=== PATIENT | female | born 1970 | race Caucasian/White ===

== ENCOUNTER 2016-10-24 00:13 | Emergency (ER) | payer SELFPAY ==
[~2016-10-24] VITALS: Ht 162.6 cm; Wt 81.6 kg
[2016-10-24 00:13] VITALS: BP 132/83
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
== END 2016-10-24 00:51 | disposition home or self-care (01) ==
LOC: ER 00:13
DX: S40.021A Contusion of right upper arm, initial encounter (principal); G44.311 Acute post-traumatic headache, intractable; M79.602 Pain in left arm; G43.909 Migraine, unspecified, not intractable, without status migrainosus; Y08.89XA Assault by other specified means, initial encounter; Y93.89 Activity, other specified; Y92.89 Other specified places as the place of occurrence of the external cause; Y99.8 Other external cause status
CPT/HCPCS: 99281

== ENCOUNTER 2017-03-26 10:21 | Emergency (ER) | payer SELFPAY ==
[2017-03-26] MEDS: KETOROLAC 60 MG/2 ML INJ. IM ×2 (11:28)
[2017-03-26] MEDS: HYDROcodone/APAP 5/325MG 1 TAB TABLET PO ×2 (12:05)
== END 2017-03-26 13:13 | disposition home or self-care (01) ==
LOC: ER 10:21
DX: R51 Headache (principal); G43.909 Migraine, unspecified, not intractable, without status migrainosus; Z90.49 Acquired absence of other specified parts of digestive tract
CPT/HCPCS: 96372; 99283; J1885

== ENCOUNTER 2017-08-21 13:23 | Emergency (ER) | payer SELFPAY | END 2017-08-21 14:10 | disposition home or self-care (01) | LOC: ER 13:23 | DX: K64.4 Residual hemorrhoidal skin tags (principal); K59.00 Constipation, unspecified; F17.210 Nicotine dependence, cigarettes, uncomplicated; Z71.6 Tobacco abuse counseling; G43.909 Migraine, unspecified, not intractable, without status migrainosus | CPT/HCPCS: 99282 ==

== ENCOUNTER 2017-09-14 14:28 | Emergency (ER) | payer SELFPAY ==
[2017-09-14] MEDS: KETOROLAC 60 MG/2 ML INJ. IM (15:30)
== END 2017-09-14 15:35 | disposition home or self-care (01) ==
LOC: ER 14:28
DX: M62.838 Other muscle spasm (principal); M25.511 Pain in right shoulder; M54.2 Cervicalgia; G43.909 Migraine, unspecified, not intractable, without status migrainosus
CPT/HCPCS: 96372; 99283; J1885

== ENCOUNTER 2017-09-26 09:49 | Emergency (ER) | payer SELFPAY ==
[~2017-09-26] VITALS: Ht 162.6 cm; Wt 81.6 kg
[~2017-09-26 09:49] MED LIST: DIAZ5TAB4 PO; HYDR30CR61 TP; MAGN296S9 PO
[2017-09-26 10:01] VITALS: BP 149/87
[2017-09-26] MEDS ORDERED: PENI500T PO (10:39)
--- NOTE | 2017-09-26 10:39 | PHYS DOC ---
Past Medical History Past Medical History: Cancer, Migraines Additional Past Medical Histor: Hx of drug abuse, colon ca, HEMORRHOID Past Surgical History: Appendectomy, Additional Past Surgical Histo: ganglion cyst, shoulder sugery, uterine ablation, R ROTATOR Alcohol Use: Occasionally Drug Use: None Adult General Chief Complaint Chief Complaint: DENTAL PROBLEM HPI HPI 47-year-old female presents to ER with complaints of right lower dental pain which started yesterday and has been gradually worsening. Patient reports she did go to work and around 3 AM pain increase. Patient states she did take tramadol at that time. Patient denies taking any other apsk-saw-wrxshtw medications for pain today. She reports she has had poor teeth for years and is daily smoker. She denies fever/chills, difficulty swallowing, sore throat/ swelling, or pooling of secretions. She denies facial swelling but does have rt ear pressure. Review of Systems Review of Systems Constitutional: Denies fever or chills [] Eyes: Denies change in visual acuity, redness, or eye pain [] HENT: Denies nasal congestion or sore throat. Reports rt ear pressure. Rt lower posterior dental pain Respiratory: Denies cough or shortness of breath [] Cardiovascular: Denies CP/palpitations GI: Denies abdominal pain, nausea, vomiting, diarrhea [] Musculoskeletal: Denies neck pain. Reports rt jaw pain denies inability to open mouth Integument: Denies rash or skin lesions [] Neurologic: Denies headache, focal weakness or dizziness All other systems were reviewed and found to be within normal limits, except as documented in this note. Current Medications Current Medications Current Medications Medications (Trade) Dose Ordered Sig/[facility] Start Time Stop Time Status Last Admin Dose Admin Acetaminophen/ Hydrocodone Bitart (Lortab 5/325) 1 tab 1X ONCE 09/26/17 10:45 09/26/17 10:46 DC 09/26/17 10:41 1 TAB Ibuprofen (Motrin) 600 mg 1X ONCE 09/26/17 10:45 09/26/17 10:46 DC 09/26/17 10:42 600 MG Allergies Allergies Allergies Coded Allergies Type Severity Reaction Last Updated Verified No Known Drug Allergies 11/17/13 No Physical Exam Physical Exam Constitutional: Well developed, well nourished, no acute distress, non-toxic appearance. [] HENT: Normocephalic, atraumatic, bilat ear exam NL- no erythema/purulent drainage behind tympanic membranes, mucous membranes pink/moist, rt lower posterior 2 molars with gum swelling/mild erythema- no abscess- lower palate soft on palp. with no palp. mass, nose normal. Bilat. mandible with no popping/ clicking when opening/closing mouth- no palp. deformity. No facial swelling Eyes: PERRLA, conjunctiva normal, no discharge. [] Neck: Normal range of motion, no tenderness, supple, no gross adenopathy Cardiovascular:Heart rate regular rhythm, no murmur [] Lungs & Thorax: Bilateral breath sounds clear to auscultation [] Abdomen: Bowel sounds normal, soft, no tenderness Skin: Warm, dry, no erythema, no rash. [] Back: No tenderness, no CVA tenderness. [] Extremities: No tenderness, ROM intact, no edema. [] Neurologic: Alert and oriented X 3, normal motor function, normal sensory function, no focal deficits noted. [] Psychologic: Affect normal, judgement normal, mood normal. [] Current Patient Data Vital Signs Vital Signs Date Time Temp Pulse Resp B/P (MAP) Pulse Ox O2 Delivery O2 Flow Rate FiO2 09/26/17 10:01 97.9 82 20 149/87 (107) 99 Room Air 97.9 EKG EKG [] Radiology/Procedures Radiology/Procedures [] Course & Med Decision Making Course & Med Decision Making Pt on exam had mild erythema posterior lower molars with silver cap on 1 of the molars. Pt had no visible/palp. abscess with full ROM of mandible. Pt was afebrile and speaking in full sentences with no pooling of secretions. Pt has hx of drug abuse in past and has been in recovery for years- discussion had with her regarding narcotics with risk of relapse. Pt verbalized understanding and is requesting 1 dose while in ER with no home Rx. Will provide [place] and dose of ibuprofen. Will give pt Rx for Pen VK and dental clinic info to f/u with with discharge paperwork. Pt has Rx for tramadol at home and will also use tylenol and/or ibuprofen as needed for pain. Education provided on s&s to return to ER for and discharge instructions were discussed. Trish Disclaimer Trish Disclaimer This electronic medical record was generated, in whole or in part, using a voice recognition dictation system. Departure Departure Disposition: 01 HOME, SELF-CARE Condition: STABLE Referrals: DANYELLE SAMANIEGO MD (PCP) Patient Instructions: Dental Caries, Smoking Cessation Additional Instructions: avoid smoking- drink plenty of water- tylenol and/or ibuprofen as needed along with your prescription you have at home for Tramadol as prescribed- warm salt swishes Scripts Penicillin V Potassium (PENICILLIN V POTASSIUM) 500 Mg Tablet 500 MG PO QID, #28 TAB 0 Refills Prov: ANDREW JORDAN APRN 09/26/17 ANDREW JORDAN APRN Sep 26, 2017 10:39
[2017-09-26] MEDS ORDERED: IBUPROFEN 600 MG TABLET. PO ONE (10:45)
[2017-09-26] MEDS ORDERED: HYDROcodone/APAP 5/325MG 1 TAB TABLET PO ONE (10:45)
== END 2017-09-26 10:40 | disposition home or self-care (01) ==
LOC: ER 09:49
DX: K08.89 Other specified disorders of teeth and supporting structures (principal); R68.84 Jaw pain; G43.909 Migraine, unspecified, not intractable, without status migrainosus; Z90.89 Acquired absence of other organs; Z98.890 Other specified postprocedural states
CPT/HCPCS: 99283; 99284

== ENCOUNTER 2018-05-16 14:14 | Emergency (ER) | payer SELFPAY ==
[~2018-05-16] VITALS: Ht 162.6 cm; Wt 72.6 kg
[~2018-05-16 14:14] MED LIST changes: +PENI500T PO
[2018-05-16 14:40] VITALS: BP 142/81
--- NOTE | 2018-05-16 14:57 | PHYS DOC ---
Past Medical History Past Medical History: Cancer, Migraines Additional Past Medical Histor: Hx of drug abuse, colon ca, HEMORRHOID Past Surgical History: Appendectomy, Additional Past Surgical Histo: ganglion cyst, shoulder sugery, uterine ablation, R ROTATOR Alcohol Use: Occasionally Drug Use: None Adult General Chief Complaint Chief Complaint: MULTIPLE COMPLAINTS HPI HPI Patient is a 48 year old female who presents with multiple complaints. She has been getting daily headaches and blurry vision for a month. The BRANHAM is located to the left side associated with ear and throat pain. She rates her current pain a 9/10. She tried taking ibuprofen which did not help. She has a hx of migraines but this has been different as IT IS longer lasting. She usually has photophobia but now she is complaining more of blurry vision. She has to use readers to see things. The pt also complains of cold toes, swollen legs and morning numbness in her hands. These symptoms have also occurred almost daily for a month. She has an associated weakness. The symptoms seem to be worse at the end of her day. She works nights and is on her feet. She has been nauseous. Denies recent illness, fever, chills, CP, SOA, vomiting, abdominal pain, diarrhea. [] Review of Systems Review of Systems Constitutional: Denies fever or chills [] Eyes: Complains of blurry vision. Denies redness, or eye pain [] HENT: Denies nasal congestion. Complains of sore throat and ear pain on the left , BRANHAM [] Respiratory: Denies cough or shortness of breath [] Cardiovascular: Complains of cold toes and swollen legs. [] GI: Denies abdominal pain, vomiting, bloody stools or diarrhea. Complains of nausea [] : Denies dysuria or hematuria [] Musculoskeletal: Denies back pain or joint pain [] Integument: Denies rash or skin lesions [] Neurologic: Complains of headache, numbness in her fingers. [] Endocrine: Denies polyuria or polydipsia [] All other systems were reviewed and found to be within normal limits, except as documented in this note. Current Medications Current Medications Current Medications Medications (Trade) Dose Ordered Sig/[place] Start Time Stop Time Status Last Admin Dose Admin Ketorolac Tromethamine (Toradol 30mg Vial) 30 mg 1X ONCE 05/16/18 15:00 05/16/18 15:01 DC 05/16/18 15:08 30 MG Prochlorperazine Edisylate (Compazine) 10 mg 1X ONCE 05/16/18 15:00 05/16/18 15:01 DC 05/16/18 15:08 10 MG Allergies Allergies Allergies Coded Allergies Type Severity Reaction Last Updated Verified No Known Drug Allergies 11/17/13 No Physical Exam Physical Exam Constitutional: Well developed, well nourished, no acute distress, non-toxic appearance. [] HENT: Normocephalic, atraumatic, bilateral external ears normal, oropharynx moist, no oral exudates, nose normal. [] Eyes: PERRLA, EOMI, conjunctiva normal, no discharge. [] Neck: Normal range of motion, tenderness on the right side, supple, no stridor. [] Cardiovascular:Heart rate regular rhythm, no murmur [] Lungs & Thorax: Bilateral breath sounds clear to auscultation [] Abdomen: Bowel sounds normal, soft, no tenderness, no masses, no pulsatile masses. [] Skin: Warm, dry, no erythema, no rash. [] Back: No tenderness, no CVA tenderness. [] Extremities: No tenderness, no cyanosis, no clubbing, ROM intact, mild edema. [ ] Neurologic: Alert and oriented X 3, normal motor function, normal sensory function, no focal deficits noted. [] Psychologic: Affect normal, judgement normal, mood normal. [] Current Patient Data Vital Signs Vital Signs Date Time Temp Pulse Resp B/P (MAP) Pulse Ox O2 Delivery O2 Flow Rate FiO2 05/16/18 14:40 98.4 98 19 142/81 (101) 98 Room Air 98.4 Lab Values Laboratory Tests Test 05/16/18 15:03 05/16/18 15:56 05/16/18 15:57 White Blood Count 8.3 x10^3/uL (4.0-11.0) Red Blood Count 4.77 x10^6/uL (3.50-5.40) Hemoglobin 14.2 g/dL (12.0-15.5) Hematocrit 42.6 % (36.0-47.0) Mean Corpuscular Volume 89 fL (79-100) Mean Corpuscular Hemoglobin 30 pg (25-35) Mean Corpuscular Hemoglobin Concent 33 g/dL (31-37) Red Cell Distribution Width 13.8 % (11.5-14.5) Platelet Count 252 x10^3/uL (140-400) Neutrophils (%) (Auto) 63 % (31-73) Lymphocytes (%) (Auto) 26 % (24-48) Monocytes (%) (Auto) 8 % (0-9) Eosinophils (%) (Auto) 3 % (0-3) Basophils (%) (Auto) 1 % (0-3) Neutrophils # (Auto) 5.2 x10^3uL (1.8-7.7) Lymphocytes # (Auto) 2.1 x10^3/uL (1.0-4.8) Monocytes # (Auto) 0.7 x10^3/uL (0.0-1.1) Eosinophils # (Auto) 0.2 x10^3/uL (0.0-0.7) Basophils # (Auto) 0.1 x10^3/uL (0.0-0.2) Sodium Level 140 mmol/L (136-145) Potassium Level 4.2 mmol/L (3.5-5.1) Chloride Level 103 mmol/L (98-107) Carbon Dioxide Level 28 mmol/L (21-32) Anion Gap 9 (6-14) Blood Urea Nitrogen 13 mg/dL (7-20) Creatinine 0.7 mg/dL (0.6-1.0) Estimated GFR (Cockcroft-Gault) 90.1 BUN/Creatinine Ratio 19 (6-20) Glucose Level 95 mg/dL (70-99) Calcium Level 9.1 mg/dL (8.5-10.1) Total Bilirubin 0.3 mg/dL (0.2-1.0) Aspartate Amino Transferase (AST) 23 U/L (15-37) Alanine Aminotransferase (ALT) 57 U/L (14-59) Alkaline Phosphatase 82 U/L (46-116) Total Protein 7.2 g/dL (6.4-8.2) Albumin 3.6 g/dL (3.4-5.0) Albumin/Globulin Ratio 1.0 (1.0-1.7) Urine Collection Type Unknown Urine Color Yellow Urine Clarity Clear Urine pH 6.5 Urine Specific [place] 1.020 Urine Protein Negative mg/dL (NEG-TRACE) Urine Glucose (UA) Negative mg/dL (NEG) Urine Ketones (Stick) Negative mg/dL (NEG) Urine Blood Negative (NEG) Urine Nitrite Negative (NEG) Urine Bilirubin Negative (NEG) Urine Urobilinogen Dipstick 1.0 mg/dL (0.2 mg/dL) Urine Leukocyte Esterase Small (NEG) Urine RBC 0 /HPF (0-2) Urine WBC 1-4 /HPF (0-4) Urine Squamous Epithelial Cells Many /LPF Urine Bacteria 0 /HPF (0-FEW) POC Urine HCG, Qualitative Hcg negative (Negative) Laboratory Tests 05/16/18 15:03 Laboratory Tests 05/16/18 15:03 EKG EKG [] Radiology/Procedures Radiology/Procedures [] Course & Med Decision Making Course & Med Decision Making Pertinent Labs and Imaging studies reviewed. (See chart for details) labs look normal pt slept in the er and felt better. no edema or neuro deficit noted on clinical exam. [] Dragon Disclaimer Dragon Disclaimer This electronic medical record was generated, in whole or in part, using a voice recognition dictation system. Departure Departure Impression: Primary Impression: Headache Disposition: HOME, SELF-CARE Condition: STABLE Referrals: DANYELLE SAMANIEGO MD (PCP) LUCIANA SANTO MD May 16, 2018 14:57
[2018-05-16] MEDS ORDERED: KETOROLAC 30 MG/ML VIAL. IM ONE (15:00)
[2018-05-16] MEDS ORDERED: PROCHLORPERAZINE 10 MG/2 ML VIAL. IM ONE (15:00)
[2018-05-16 15:13] LABS: BASO # 0.1 x10^3/uL (0.0-0.2); BASO % 1 % (0-3); EOS # 0.2 x10^3/uL (0.0-0.7); EOS % 3 % (0-3); HEMATOCRIT 42.6 % (36.0-47.0); HEMOGLOBIN 14.2 g/dL (12.0-15.5); LYMPH # 2.1 x10^3/uL (1.0-4.8); LYMPH % 26 % (24-48); MEAN CORPUSCULAR HEMOGLOBIN 30 pg (25-35); MEAN CORPUSCULAR HGB CONC 33 g/dL (31-37); MEAN CORPUSCULAR VOLUME 89 fL (79-100); MONO # 0.7 x10^3/uL (0.0-1.1); MONO % 8 % (0-9); NEUT # 5.2 x10^3uL (1.8-7.7); NEUT % 63 % (31-73); PLATELET COUNT 252 x10^3/uL (140-400); RED BLOOD COUNT 4.77 x10^6/uL (3.50-5.40); RED CELL DISTRIBUTION WIDTH 13.8 % (11.5-14.5); WHITE BLOOD COUNT 8.3 x10^3/uL (4.0-11.0)
[2018-05-16 15:26] LABS: CALCIUM 9.1 mg/dL (8.5-10.1); CREATININE 0.7 mg/dL (0.6-1.0); GFR 90.1; POTASSIUM 4.2 mmol/L (3.5-5.1)
[2018-05-16 15:32] LABS: ALBUMIN 3.6 g/dL (3.4-5.0); TOTAL BILIRUBIN 0.3 mg/dL (0.2-1.0); TOTAL PROTEIN 7.2 g/dL (6.4-8.2)
[2018-05-16 16:05] LABS: BILIRUBIN,URINE NEGATIVE (NEG); CLARITY,URINE CLEAR; COLOR,URINE YELLOW; NITRITE,URINE NEGATIVE (NEG); PH,URINE 6.5; PROTEIN,URINE NEGATIVE (NEG-TRACE)
[2018-05-16 16:16] LABS: BACTERIA,URINE 0 /HPF (0-FEW); RBC,URINE 0 /HPF (0-2); SQUAMOUS EPITHELIAL CELL,UR MANY /LPF
== END 2018-05-16 16:31 | disposition home or self-care (01) ==
LOC: ER 14:14
DX: G43.909 Migraine, unspecified, not intractable, without status migrainosus (principal); H53.8 Other visual disturbances; R20.0 Anesthesia of skin; R11.0 Nausea; Z90.89 Acquired absence of other organs; Z98.890 Other specified postprocedural states
CPT/HCPCS: 36415; 80053; 81001; 81025; 85025; 87086; 96372; 99283; J0780; J1885

== ENCOUNTER 2018-08-03 20:51 | Emergency (ER) | payer SELFPAY ==
[~2018-08-03] VITALS: Ht 162.6 cm; Wt 86.2 kg
[2018-08-03 21:20] VITALS: BP 142/81
[2018-08-03] MEDS ORDERED: CEPH500C PO (21:48)
[2018-08-03 22:20] LABS: CREATININE ISTAT 0.9 mg/dL (0.5-1.4); HEMOGLOBIN ISTAT 13.6 g/dL (12-15); ION CA ISTAT 1.2 mmol/L (1.13-1.32); POTASSIUM ISTAT 3.6 mmol/L (3.5-5.0)
--- NOTE | 2018-08-03 22:27 | PHYS DOC ---
Past Medical History Past Medical History: Cancer, Migraines Additional Past Medical Histor: Hx of drug abuse, colon ca, HEMORRHOID Past Surgical History: Appendectomy, Additional Past Surgical Histo: ganglion cyst, shoulder sugery, uterine ablation, R ROTATOR Alcohol Use: Occasionally Drug Use: None Adult General Chief Complaint Chief Complaint: MULTIPLE COMPLAINTS HPI HPI Patient is a 48 year old female presents with an enlarging mole on her left face she said something came out of it was bleeding all day she is really worried that she might have skin cancer. Pain is moderate left cheek nonradiating feel swollen has not yet tried anything for relief. In addition she is worried about weight gain for the last several days she feels like everything is swollen. Of note we did an i-STAT chemistry panel sodium 140 potassium 3.6 chloride 101 glucose 90 9B UN of a creatinine of 0.9 hemoglobin of 13.6. Review of Systems Review of Systems Constitutional: Denies fever or chills [] Eyes: Denies change in visual acuity, redness, or eye pain [] HENT: Denies nasal congestion or sore throat [] Respiratory: Denies cough or shortness of breath [] Cardiovascular: No additional information not addressed in HPI [] Musculoskeletal: Denies back pain or joint pain [] All other systems were reviewed and found to be within normal limits, except as documented in this note. Allergies Allergies Allergies Coded Allergies Type Severity Reaction Last Updated Verified No Known Drug Allergies 11/17/13 No Physical Exam Physical Exam Constitutional: Well developed, well nourished, no acute distress, non-toxic appearance. [] HENT: Normocephalic, atraumatic, bilateral external ears normal, oropharynx moist, no oral exudates, nose normal. [] Eyes: PERRLA, EOMI, conjunctiva normal, no discharge. [] Neck: Normal range of motion, no tenderness, supple, no stridor. [] Cardiovascular:Heart rate regular rhythm, no murmur [] Lungs & Thorax: Bilateral breath sounds clear to auscultation [] Abdomen: Bowel sounds normal, soft, no tenderness, no masses, no pulsatile masses. [] Skin: There is a molar left face there is mild erythema surrounding it is mildly to moderately tender to palpation no obvious fluctuance. It is approximately 1 cm in size Back: No tenderness, no CVA tenderness. [] Extremities: No tenderness, no cyanosis, no clubbing, ROM intact, trace edema bilateral lower extremities Neurologic: Alert and oriented X 3, normal motor function, normal sensory function, no focal deficits noted. [] Psychologic: Affect normal, judgement normal, mood normal. [] Current Patient Data Vital Signs Vital Signs Date Time Temp Pulse Resp B/P (MAP) Pulse Ox O2 Delivery O2 Flow Rate FiO2 08/03/18 21:20 98.6 100 18 142/81 (101) 98 Room Air 98.6 Lab Values Laboratory Tests Test 08/03/18 21:55 POC Hemoglobin 13.6 g/dL (12-15) POC Hematocrit 40 % (36-40) POC Sodium 140 mmol/L (135-145) POC Potassium 3.6 mmol/L (3.5-5.0) POC Chloride 101 mmol/L (98-110) POC Total CO2 26 mmol/L (23-32) Anion Gap 18 mmol/L (6-14) H POC Blood Urea Nitrogen 8 mg/dL (8-26) POC Creatinine 0.9 mg/dL (0.5-1.4) Glucose Level 99 mg/dL (70-99) POC Ionized Calcium (Julia) 1.20 mmol/L (1.13-1.32) Laboratory Tests 08/03/18 21:55 EKG EKG [] Radiology/Procedures Radiology/Procedures [] Course & Med Decision Making Course & Med Decision Making Pertinent Labs and Imaging studies reviewed. (See chart for details) []Doses well-appearing 48-year-old female who presents with a primary complaint of an enlarging mold her left face. There may be mild cellulitis Keflex was given patient was advised on the importance of dermatology follow-up within 4 weeks for possible biopsy if it does not go down. In addition we did a Creatinine for reported increased weight gain that was normal patient really has minimal edema if any reassurance was provided vitals are normal lungs are clear. Dragon Disclaimer Dragon Disclaimer This electronic medical record was generated, in whole or in part, using a voice recognition dictation system. Departure Departure Impression: Primary Impression: Skin mole Disposition: HOME, SELF-CARE Condition: STABLE Patient Instructions: Mole-Brief Additional Instructions: get follow up dermatology in 4 weeks for biopsy if it doesnt go down. Scripts Cephalexin (CEPHALEXIN) 500 Mg Capsule 1 CAP PO QID, #40 CAP Prov: LENAGHAN,LUCIANA MD 08/03/18 LUCIANA SANTO MD Aug 03, 2018 22:27
== END 2018-08-03 22:30 | disposition home or self-care (01) ==
LOC: ER 20:51
DX: D22.39 Melanocytic nevi of other parts of face (principal); G43.909 Migraine, unspecified, not intractable, without status migrainosus; Z90.89 Acquired absence of other organs; Z98.890 Other specified postprocedural states
CPT/HCPCS: 36415; 80047; 85014; 85018; 99283

== ENCOUNTER 2019-06-25 02:13 | Emergency (ER) | payer SELFPAY ==
[~2019-06-25] VITALS: Ht 162.6 cm; Wt 81.8 kg
[~2019-06-25 02:13] MED LIST changes: +CEPH500C PO; +MAGN296S68 PO; -MAGN296S9 PO
[2019-06-25 03:18] LABS: BILIRUBIN,URINE NEGATIVE (NEG); CLARITY,URINE CLEAR; COLOR,URINE YELLOW; NITRITE,URINE NEGATIVE (NEG); PH,URINE 5.5 (<5.0-8.0); PROTEIN,URINE NEGATIVE (NEG-TRACE); UROBILINOGEN,URINE 0.2 mg/dL (0.2 mg/dL)
[2019-06-25 03:19] LABS: BACTERIA,URINE FEW /HPF (0-FEW); RBC,URINE OCC /HPF (0-2); SQUAMOUS EPITHELIAL CELL,UR MOD /LPF
--- NOTE | 2019-06-25 03:46 | PHYS DOC ---
Past Medical History Past Medical History: No Pertinent History Additional Past Medical Histor: Hx of drug abuse, colon ca, HEMORRHOID Past Surgical History: Appendectomy, Additional Past Surgical Histo: tubal, c section, previous meth use Smoking Status: Current Every Day Smoker Additional Information: 02/14 ppd Alcohol Use: Rarely Drug Use: None Social History Narrative: recovering meth use General Adult EDM: Chief Complaint: VAGINAL PROBLEM HPI: HPI: Patient is a 49 year old female who presents with complaint of vaginal swelling and pain for the last 3 days. Patient states that it haney when she urinates. She denies any fever. Patient states that she has been taking Monistat without any relief. Patient does believe it to be a yeast infection. Patient does indicate that she is not sexually active so she knows that it is not an STD. [] Review of Systems: Review of Systems: Constitutional: Denies fever or chills. [] Respiratory: Denies cough or shortness of breath. [] Cardiovascular: Denies chest pain or edema. [] GI: Denies abdominal pain, nausea, vomiting, bloody stools or diarrhea. [] : Complains of burning with urination as well as vaginal pain. [] Neurologic: Denies headache, focal weakness or sensory changes. [] Heart Score: Risk Factors: Risk Factors: DM, Current or recent (<one month) smoker, HTN, HLP, family history of CAD, obesity. Risk Scores: Score 0 - 3: 2.5% MACE over next 6 weeks - Discharge Home Score 4 - 6: 20.3% MACE over next 6 weeks - Admit for Clinical Observation Score 7 - 10: 72.7% MACE over next 6 weeks - Early Invasive Strategies Current Medications: Current Medications Medications (Trade) Dose Ordered Sig/[facility] Start Time Stop Time Status Last Admin Dose Admin Fluconazole (Diflucan) 150 mg 1X ONCE 06/25/19 04:00 06/25/19 04:01 06/25/19 03:40 150 MG Allergies: Allergies: Allergies Coded Allergies Type Severity Reaction Last Updated Verified No Known Drug Allergies 11/17/13 No Physical Exam: PE: Constitutional: Well developed, well nourished, no acute distress, non-toxic appearance. [] Cardiovascular: Regular rate and rhythm [] Lungs & Thorax: Bilateral breath sounds clear to auscultation [] Abdomen: Bowel sounds normal, soft, no tenderness. [] Skin: Warm, dry, no erythema, no rash. [] Current Patient Data: Labs: Laboratory Tests Test 06/25/19 02:25 Urine Collection Type Unknown Urine Color Yellow Urine Clarity Clear Urine pH 5.5 (<5.0-8.0) Urine Specific Harvey >=1.030 (1.000-1.030) Urine Protein Negative mg/dL (NEG-TRACE) Urine Glucose (UA) Negative mg/dL (NEG) Urine Ketones (Stick) Negative mg/dL (NEG) Urine Blood Small (NEG) Urine Nitrite Negative (NEG) Urine Bilirubin Negative (NEG) Urine Urobilinogen Dipstick 0.2 mg/dL (0.2 mg/dL) Urine Leukocyte Esterase Moderate (NEG) Urine RBC Occ /HPF (0-2) Urine WBC 5-10 /HPF (0-4) Urine Squamous Epithelial Cells Mod /LPF Urine Bacteria Few /HPF (0-FEW) Urine Mucus Mod /LPF Vital Signs: Vital Signs Date Time Temp Pulse Resp B/P (MAP) Pulse Ox O2 Delivery O2 Flow Rate FiO2 06/25/19 02:21 98.2 105 18 144/74 (97) 97 Room Air 98.2 EKG: EKG: [] Radiology/Procedures: Radiology/Procedures: [] Course & Med Decision Making: Course & Med Decision Making Pertinent Labs and Imaging studies reviewed. (See chart for details) [] Dragon Disclaimer: Dragon Disclaimer: This electronic medical record was generated, in whole or in part, using a voice recognition dictation system. Departure Departure Impression: Primary Impression: Bacterial vaginosis Disposition: 01 HOME, SELF-CARE Condition: STABLE Referrals: DANYELLE SAMANIEGO MD (PCP) Patient Instructions: Bacterial Vaginosis Scripts Clotrimazole (CLOTRIMAZOLE) 15 Gm Cream..g. 1 JONATHON VAG BID, #15 GM Prov: JAS WILLIAMSON Jr. DO 06/25/19 Metronidazole (FLAGYL) 500 Mg Tablet 1 TAB PO BID, #14 TAB Prov: JAS WILLIAMSON Jr. DO 06/25/19 JAS WILLIAMSON Jr. DO June 25, 2019 03:45
[2019-06-25] MEDS ORDERED: FLUCONAZOLE 100 MG TABLET. PO ONE (04:00)
[2019-06-25 04:30] VITALS: BP 160/77
[2019-06-25] MEDS ORDERED: CLOT15CR4 VAG (04:39)
[2019-06-25] MEDS ORDERED: METR500T PO (04:39)
== END 2019-06-25 04:47 | disposition home or self-care (01) ==
LOC: ER 02:13
DX: N76.0 Acute vaginitis (principal); R30.0 Dysuria; R60.0 Localized edema; R10.2 Pelvic and perineal pain; F17.200 Nicotine dependence, unspecified, uncomplicated; F19.10 Other psychoactive substance abuse, uncomplicated; F15.10 Other stimulant abuse, uncomplicated; Z98.51 Tubal ligation status; Z90.89 Acquired absence of other organs; Z98.890 Other specified postprocedural states; Z85.9 Personal history of malignant neoplasm, unspecified
CPT/HCPCS: 81001; 87086; 99284; Q0111

== ENCOUNTER 2020-07-26 19:28 | Emergency (ER) | payer SELFPAY ==
[~2020-07-26] VITALS: Ht 162.6 cm; Wt 82.0 kg
[~2020-07-26 19:28] MED LIST changes: +CLOT15CR23 VAG; +METR500T PO
[2020-07-26] MEDS ORDERED: KETOROLAC 30 MG/ML VIAL. IVP ONE (20:15)
[2020-07-26] MEDS ORDERED: PROCHLORPERAZINE 10 MG/2 ML VIAL. IV ONE (20:15)
[2020-07-26] MEDS ORDERED: methylPREDNISolone SOD SUCC PF 125 MG/2 ML VIAL. IV ONE (20:15)
[2020-07-26] MEDS ORDERED: IV NORMAL SALINE 1000ML BAG 1,000 ML IV ONE (20:15)
[2020-07-26 20:27] LABS: BASO # 0.1 x10^3/uL (0.0-0.2); BASO % 1 % (0-3); EOS # 0.4 x10^3/uL (0.0-0.7); EOS % 6 % (0-3); HEMATOCRIT 38.5 % (36.0-47.0); HEMOGLOBIN 12.9 g/dL (12.0-15.5); LYMPH # 2.2 x10^3/uL (1.0-4.8); LYMPH % 32 % (24-48); MEAN CORPUSCULAR HEMOGLOBIN 29 pg (25-35); MEAN CORPUSCULAR HGB CONC 33 g/dL (31-37); MEAN CORPUSCULAR VOLUME 87 fL (79-100); MONO # 0.6 x10^3/uL (0.0-1.1); MONO % 8 % (0-9); NEUT # 3.6 x10^3/uL (1.8-7.7); NEUT % 53 % (31-73); PLATELET COUNT 218 x10^3/uL (140-400); RED BLOOD COUNT 4.45 x10^6/uL (3.50-5.40); RED CELL DISTRIBUTION WIDTH 13.9 % (11.5-14.5); WHITE BLOOD COUNT 6.9 x10^3/uL (4.0-11.0)
[2020-07-26 20:37] LABS: CALCIUM 8.4 mg/dL (8.5-10.1); CREATININE 1.1 mg/dL (0.6-1.0); POTASSIUM 3.5 mmol/L (3.5-5.1)
[2020-07-26 20:42] LABS: ALBUMIN 3.1 g/dL (3.4-5.0); ALBUMIN/GLOBULIN RATIO 1.1 (1.0-1.7); TOTAL BILIRUBIN 0.3 mg/dL (0.2-1.0)
[2020-07-26] MEDS ORDERED: PROM12.58 PO ×2 (22:02→22:55)
[2020-07-26] MEDS ORDERED: SUMA50TA3 PO ×2 (22:02→22:55)
--- NOTE | 2020-07-26 22:02 | PHYS DOC ---
Past Medical History Past Medical History: Other Additional Past Medical Histor: Hx of drug abuse, colon ca, HEMORRHOID, ORAL CA (LYUDMILA ELDER BEHAVIORAL THERAPIST) Past Surgical History: Appendectomy, Additional Past Surgical Histo: tubal, c section, previous meth use (LYUDMILA ELDER BEHAVIORAL THERAPIST) Smoking Status: Current Every Day Smoker Alcohol Use: Rarely Drug Use: None (LYUDMILA ELDER BEHAVIORAL THERAPIST) General Adult EDM: Chief Complaint: MULTIPLE COMPLAINTS HPI: HPI: Patient is a 50 year old female who presents to the ED today with multiple complaints. Patient is complaining of 8 out of 10 generalized moderate headache with nausea, symptoms began yesterday. Patient states she used to be on Imitrex but does not have it anymore. Tried [id number] remedies with no relief. Also complaining of subjective fever and nasal congestion since this morning. Denies this being the worst headache in her life, states her headache is consistent with her migraine headaches. (LYUDMILA ELDER BEHAVIORAL THERAPIST) Review of Systems: Review of Systems: Constitutional: Denies fever or chills. [] Eyes: Denies change in visual acuity. [] HENT: Reports nasal congestion denies sore throat. [] Respiratory: Denies cough or shortness of breath. [] Cardiovascular: Denies chest pain or edema. [] GI: Denies abdominal pain, nausea, vomiting, bloody stools or diarrhea. [] : Denies dysuria. [] Musculoskeletal: Denies back pain or joint pain. [] Integument: Denies rash. [] Neurologic: Reports headache, denies focal weakness or sensory changes. [] Psychiatric: Denies depression or anxiety. [] (LYUDMILA ELDER BEHAVIORAL THERAPIST) Heart Score: C/O Chest Pain: N/A Risk Factors: Risk Factors: DM, Current or recent (<one month) smoker, HTN, HLP, family history of CAD, obesity. Risk Scores: Score 0 - 3: 2.5% MACE over next 6 weeks - Discharge Home Score 4 - 6: 20.3% MACE over next 6 weeks - Admit for Clinical Observation Score 7 - 10: 72.7% MACE over next 6 weeks - Early Invasive Strategies (LYUDMILA ELDER BEHAVIORAL THERAPIST) Current Medications: Current Medications Medications (Trade) Dose Ordered Sig/[facility] Start Time Stop Time Status Last Admin Dose Admin Ketorolac Tromethamine (Toradol 30mg Vial) 30 mg 1X ONCE 07/26/20 20:15 07/26/20 20:16 DC 07/26/20 20:17 30 MG Methylprednisolone Sodium Succinate (SOLU-Medrol 125MG VIAL) 125 mg 1X ONCE 07/26/20 20:15 07/26/20 20:16 DC 07/26/20 20:17 125 MG Prochlorperazine Edisylate (Compazine) 10 mg 1X ONCE 07/26/20 20:15 07/26/20 20:16 DC 07/26/20 20:17 10 MG Sodium Chloride 1,000 ml @ 1,000 mls/hr 1X ONCE 07/26/20 20:15 07/26/20 21:14 DC 07/26/20 20:16 1,000 MLS/HR (LYUDMILA ELDER BEHAVIORAL THERAPIST) Allergies: Allergies: Allergies Coded Allergies Type Severity Reaction Last Updated Verified No Known Drug Allergies 11/17/13 No (LYUDMILA ELDER BEHAVIORAL THERAPIST) Physical Exam: PE: Constitutional: Well developed, well nourished, no acute distress, non-toxic appearance. [] HENT: Normocephalic, atraumatic, bilateral external ears normal, oropharynx moist, no oral exudates, nose normal. [] Eyes: PERRLA, EOMI, conjunctiva normal, no discharge. [] Neck: Normal range of motion, no tenderness, supple, no stridor. [] Cardiovascular:Heart rate regular rhythm, no murmur [] Lungs & Thorax: Bilateral breath sounds clear to auscultation [] Abdomen: Bowel sounds normal, soft, no tenderness, no masses, no pulsatile masses. [] Skin: Warm, dry, no erythema, no rash. [] Back: No tenderness, no CVA tenderness. [] Extremities: No tenderness, no cyanosis, no clubbing, ROM intact, no edema. [] Neurologic: Alert and oriented X 3, normal motor function, normal sensory function, no focal deficits noted. Cranial nerves II through XII intact Psychologic: Affect normal, judgement normal, mood normal. [] (LYUDMILA ELDER BEHAVIORAL THERAPIST) Current Patient Data: Labs: Laboratory Tests Test 07/26/20 20:15 White Blood Count 6.9 x10^3/uL (4.0-11.0) Red Blood Count 4.45 x10^6/uL (3.50-5.40) Hemoglobin 12.9 g/dL (12.0-15.5) Hematocrit 38.5 % (36.0-47.0) Mean Corpuscular Volume 87 fL (79-100) Mean Corpuscular Hemoglobin 29 pg (25-35) Mean Corpuscular Hemoglobin Concent 33 g/dL (31-37) Red Cell Distribution Width 13.9 % (11.5-14.5) Platelet Count 218 x10^3/uL (140-400) Neutrophils (%) (Auto) 53 % (31-73) Lymphocytes (%) (Auto) 32 % (24-48) Monocytes (%) (Auto) 8 % (0-9) Eosinophils (%) (Auto) 6 % (0-3) H Basophils (%) (Auto) 1 % (0-3) Neutrophils # (Auto) 3.6 x10^3/uL (1.8-7.7) Lymphocytes # (Auto) 2.2 x10^3/uL (1.0-4.8) Monocytes # (Auto) 0.6 x10^3/uL (0.0-1.1) Eosinophils # (Auto) 0.4 x10^3/uL (0.0-0.7) Basophils # (Auto) 0.1 x10^3/uL (0.0-0.2) Sodium Level 143 mmol/L (136-145) Potassium Level 3.5 mmol/L (3.5-5.1) Chloride Level 105 mmol/L (98-107) Carbon Dioxide Level 29 mmol/L (21-32) Anion Gap 9 (6-14) Blood Urea Nitrogen 9 mg/dL (7-20) Creatinine 1.1 mg/dL (0.6-1.0) H Estimated GFR (Cockcroft-Gault) 53.0 BUN/Creatinine Ratio 8 (6-20) Glucose Level 163 mg/dL (70-99) H Calcium Level 8.4 mg/dL (8.5-10.1) L Total Bilirubin 0.3 mg/dL (0.2-1.0) Aspartate Amino Transferase (AST) 13 U/L (15-37) L Alanine Aminotransferase (ALT) 22 U/L (14-59) Alkaline Phosphatase 81 U/L (46-116) Total Protein 6.0 g/dL (6.4-8.2) L Albumin 3.1 g/dL (3.4-5.0) L Albumin/Globulin Ratio 1.1 (1.0-1.7) Ethyl Alcohol Level < 10 mg/dL (0-10) Laboratory Tests 07/26/20 20:15 Laboratory Tests 07/26/20 20:15 Vital Signs: Vital Signs Date Time Temp Pulse Resp B/P (MAP) Pulse Ox O2 Delivery O2 Flow Rate FiO2 07/26/20 20:18 98 18 130/78 (95) 96 Room Air 07/26/20 19:30 98.1 98.1 (LYUDMILA ELDER BEHAVIORAL THERAPIST) EKG: EKG: [] (LYUDMILA ELDER APRN) Radiology/Procedures: Radiology/Procedures: [] (LYUDMILA ELDER APRN) Course & Med Decision Making: Course & Med Decision Making Pertinent Labs and Imaging studies reviewed. (See chart for details) This is a 50-year-old female patient presenting to the ED today with a migraine headache, nasal congestion and nausea. Symptoms since yesterday. Patient's labs are negative for any acute findings. Pain is well managed. Discharged home. Prescription for Imitrex provided (LYUDMILA ELDER BEHAVIORAL THERAPIST) Course & Med Decision Making The chart was reviewed. Care and treatment plan made by midlevel provider. I was available for consult. (MELITON LANZA DO) Trish Disclaimer: Trish Disclaimer: This electronic medical record was generated, in whole or in part, using a voice recognition dictation system. (LYUDMILA ELDER BEHAVIORAL THERAPIST) Departure Departure Impression: Primary Impression: Migraine headache Qualified Codes: G43.909 - Migraine, unspecified, not intractable, without status migrainosus Additional Impressions: Upper respiratory infection Qualified Codes: J06.9 - Acute upper respiratory infection, unspecified Nausea Disposition: HOME / SELF CARE / HOMELESS Condition: STABLE Referrals: DANYELLE SAMANIEGO MD (PCP) Follow-up in a week Patient Instructions: Migraine Headache, Nausea and Vomiting, Hhmi-ep-[id number], Upper Respiratory Infection, Adult, Pylx-kj-Eond Additional Instructions: You were evaluated in the emergency room for migraine headache with nausea as well as upper respiratory infection symptoms. Take the prescribed medications as ordered. Follow-up with your doctor in 1 week Scripts Sumatriptan Succinate (IMITREX) 50 Mg Tablet 1 TAB PO UD, #9 TAB 1 Refill Take one tablet at the onset of migraine headache. Repeat in 2 hours if pain persist. Do not take more than 2 tablets in 24 hours Prov: LYUDMILA ELDER APRN 07/26/20 Promethazine Hcl (PROMETHAZINE HCL) 25 Mg Tablet 1 TAB PO PRN Q6HRS, #20 TAB Prov: LYUDMILA ELDER APRN 07/26/20 Promethazine Hcl (PROMETHAZINE HCL) 12.5 Mg Tablet 1 TAB PO Q6-8HRS for motion sickness for 5 Days, #20 TAB 0 Refills Prov: LYUDMILA ELDER APRN 07/26/20 Sumatriptan Succinate (IMITREX) 50 Mg Tablet 1 TAB PO UD, #9 TAB 1 Refill Take 1 tablet at the onset of a headache and repeat in 2 hours if symptoms persist, do not take more than 2 tablets in 24 hours Prov: LYUDMILA ELDER APRN 07/26/20 LYUDMILA ELDER APRN Jul 26, 2020 22:02 MELITON LANZA DO Jul 27, 2020 20:22
[2020-07-26 22:09] VITALS: BP 117/82
[2020-07-26] MEDS ORDERED: PROM25TA10 PO (22:55)
== END 2020-07-26 22:50 | disposition home or self-care (01) ==
LOC: ER 19:28
DX: G43.909 Migraine, unspecified, not intractable, without status migrainosus (principal); J06.9 Acute upper respiratory infection, unspecified; F17.200 Nicotine dependence, unspecified, uncomplicated; Z90.89 Acquired absence of other organs
CPT/HCPCS: 36415; 80053; 85025; 96361; 96374; 96375; 99285; G0480; J0780; J1885; J2930; J7030

== ENCOUNTER 2020-08-07 14:08 | Emergency (ER) | payer SELFPAY ==
[~2020-08-07] VITALS: Ht 162.6 cm; Wt 72.7 kg
[~2020-08-07 14:08] MED LIST changes: +PROM12.58 PO; +PROM25TA10 PO; +SUMA50TA3 PO
[2020-08-07 15:08] LABS: BASO # 0.1 x10^3/uL (0.0-0.2); BASO % 1 % (0-3); EOS # 0.2 x10^3/uL (0.0-0.7); EOS % 2 % (0-3); HEMATOCRIT 42.8 % (36.0-47.0); HEMOGLOBIN 14.8 g/dL (12.0-15.5); LYMPH # 2.4 x10^3/uL (1.0-4.8); LYMPH % 25 % (24-48); MEAN CORPUSCULAR HEMOGLOBIN 30 pg (25-35); MEAN CORPUSCULAR HGB CONC 35 g/dL (31-37); MEAN CORPUSCULAR VOLUME 87 fL (79-100); MONO % 10 % (0-9); NEUT # 6.2 x10^3/uL (1.8-7.7); NEUT % 62 % (31-73); PLATELET COUNT 281 x10^3/uL (140-400); RED BLOOD COUNT 4.94 x10^6/uL (3.50-5.40); RED CELL DISTRIBUTION WIDTH 14.1 % (11.5-14.5)
[2020-08-07 15:09] LABS: BILIRUBIN,URINE SMALL (NEG); CLARITY,URINE CLEAR; COLOR,URINE AMBER; NITRITE,URINE NEGATIVE (NEG); PROTEIN,URINE NEGATIVE (NEG-TRACE)
[2020-08-07 15:15] LABS: CALCIUM 8.8 mg/dL (8.5-10.1); GFR 59.2
[2020-08-07 15:21] LABS: ALBUMIN 3.4 g/dL (3.4-5.0); TOTAL BILIRUBIN 0.2 mg/dL (0.2-1.0); TOTAL PROTEIN 6.7 g/dL (6.4-8.2)
[2020-08-07 15:24] LABS: BACTERIA,URINE MODERATE /HPF (0-FEW); RBC,URINE OCC /HPF (0-2)
--- NOTE | 2020-08-07 15:28 | PHYS DOC ---
Past Medical History Past Medical History: Cancer, Migraines, Other Additional Past Medical Histor: Hx of drug abuse/METH USE/colon ca/ HEMORRHO ID,ORAL CA Past Surgical History: Appendectomy, , Tubal ligation Additional Past Surgical Histo: tubal, c section, previous meth use Smoking Status: Current Every Day Smoker Additional Information: 0.75 PPD Alcohol Use: Rarely Drug Use: None General Adult EDM: Chief Complaint: DIZZY/LIGHT HEADED HPI: HPI: 50-year-old female presenting to the emergency department today with dizziness for 2 weeks. She reports the dizziness is worse when she moves and helps when she lays down and close her eyes. It is not present all the time. She denies double vision slurred speech or focal neurologic deficits. Location generalized. Duration constant. She was seen in another hospital they gave her meclizine which causes her to be mildly nauseous. Review of systems negative for chest pain shortness of breath abdominal pain vomiting diaphoresis fevers or chills. All other review of systems negative. ED course: 50-year-old female presenting the emergency department today with generalized dizziness. Exam is suggestive of a peripheral vertigo. Head CT and blood work unremarkable. Urine analysis is not suggestive of an infection. Small leuk esterase. Negative nitrites. Contaminated specimen. We will provide the patient with Zofran and refer her outpatient to a neurologist for vertigo. Follow-up within 1 to 2 days with PCP follow-up within 3 to 5 days of neurology. Return for worsening symptoms. Heart Score: C/O Chest Pain: No Risk Factors: Risk Factors: DM, Current or recent (<one month) smoker, HTN, HLP, family history of CAD, obesity. Risk Scores: Score 0 - 3: 2.5% MACE over next 6 weeks - Discharge Home Score 4 - 6: 20.3% MACE over next 6 weeks - Admit for Clinical Observation Score 7 - 10: 72.7% MACE over next 6 weeks - Early Invasive Strategies Allergies: Allergies: Allergies Coded Allergies Type Severity Reaction Last Updated Verified No Known Drug Allergies 11/17/13 No Physical Exam: PE: Constitutional: Well developed, well nourished, no acute distress, non-toxic appearance. [] HENT: Normocephalic, atraumatic, bilateral external ears normal, oropharynx moist, no oral exudates, nose normal. [] Eyes: PERRLA, EOMI, conjunctiva normal, no discharge. [] Neck: Normal range of motion, no tenderness, supple, no stridor. [] Cardiovascular:Heart rate regular rhythm, no murmur [] Lungs & Thorax: Bilateral breath sounds clear to auscultation [] Abdomen: Bowel sounds normal, soft, no tenderness, no masses, no pulsatile masses. [] Skin: Warm, dry, no erythema, no rash. [] Back: No tenderness, no CVA tenderness. [] Extremities: No tenderness, no cyanosis, no clubbing, ROM intact, no edema. [] Neurologic: Mental status: Awake oriented and alert x3 Cranial nerves: Extraocular movements intact, eyebrows zoila bilaterally, smile symmetric, uvula elevation nl, shoulder shrug intact bilaterally, tongue protrusion normal. Head impulse suggestive of peripheral vertigo with nystagmus provoked. Lateral nystagmus present. No vertical nystagmus. No skew. Clear speech. Normal [id number]-[id number]. Sensation: equal and normal in all extremities Strength: 5/5 in upper and lower extremities bilaterally Psychologic: Affect normal, judgement normal, mood normal. [] Current Patient Data: Labs: Laboratory Tests Test 08/07/20 14:57 White Blood Count 10.0 x10^3/uL (4.0-11.0) Red Blood Count 4.94 x10^6/uL (3.50-5.40) Hemoglobin 14.8 g/dL (12.0-15.5) Hematocrit 42.8 % (36.0-47.0) Mean Corpuscular Volume 87 fL (79-100) Mean Corpuscular Hemoglobin 30 pg (25-35) Mean Corpuscular Hemoglobin Concent 35 g/dL (31-37) Red Cell Distribution Width 14.1 % (11.5-14.5) Platelet Count 281 x10^3/uL (140-400) Neutrophils (%) (Auto) 62 % (31-73) Lymphocytes (%) (Auto) 25 % (24-48) Monocytes (%) (Auto) 10 % (0-9) H Eosinophils (%) (Auto) 2 % (0-3) Basophils (%) (Auto) 1 % (0-3) Neutrophils # (Auto) 6.2 x10^3/uL (1.8-7.7) Lymphocytes # (Auto) 2.4 x10^3/uL (1.0-4.8) Monocytes # (Auto) 1.0 x10^3/uL (0.0-1.1) Eosinophils # (Auto) 0.2 x10^3/uL (0.0-0.7) Basophils # (Auto) 0.1 x10^3/uL (0.0-0.2) Laboratory Tests 08/07/20 14:57 Vital Signs: Vital Signs Date Time Temp Pulse Resp B/P (MAP) Pulse Ox O2 Delivery O2 Flow Rate FiO2 08/07/20 14:27 98.1 108 17 147/77 (100) 99 Room Air 98.1 EKG: EKG: [] Radiology/Procedures: Radiology/Procedures: [] Course & Med Decision Making: Course & Med Decision Making Pertinent Labs and Imaging studies reviewed. (See chart for details) [] Dragon Disclaimer: [email or web address] Disclaimer: This electronic medical record was generated, in whole or in part, using a voice recognition dictation system. Departure Departure Impression: Primary Impression: Vertigo Disposition: 01 HOME / SELF CARE / HOMELESS Admitting Physician: MARIUM Condition: STABLE Referrals: DANYELLE SAMANIEGO MD (PCP) Patient Instructions: Vertigo Additional Instructions: EMERGENCY DEPARTMENT GENERAL DISCHARGE INSTRUCTIONS Follow-up with your primary physician in 1 to 2 days. Follow-up with neurology in 3 to 5 days. Return to the emergency department if you have any new or concerning findings. Thank you for coming to [facility] Emergency Department (ED) today and trusting us with you care. We trust that you had a positive experience in our Emergency Department. If you wish to speak to the department management, you may call the Director at [phone]. Follow up is important in emergency/acute care visits. This condition should be evaluated by your primary care physician and any necessary consulting services for continued management within a few days (1-2) after discharge. Return to the emergency department if you have any new or concerning symptoms including but not limited to fever, chills, nausea, vomiting, intractable pain, any new rashes, chest pain, shortness of breath, uncontrolled bleeding, difficulty breathing, and/or vision loss. 1. Do you have a private Doctor? If you do not have a private doctor, please ask for a resource list of physicians or clinics that may be able to assist you with follow up care. 2. If a lab test or culture has been done and does not come back immediately, your results will be reviewed and you will be notified if you need a change in treatment. 3. Your care today has been supervised by a physician who is specially trained in emergency care. Many problems require more than one evaluation for a complete diagnosis and treatment. We recommend that you schedule your follow up appointment as recommended to ensure complete treatment of you illness or injury. If you are unable to obtain follow up care and continue to have a problem, or if your condition worsens, we recommend that you return to the ED. 4. We are not able to safely determine your condition over the phone nor are we able to give sound medical advice over the phone. For these safety reasons, if you call for medical advice we will ask you to come to the ED for further evaluation. IF YOUR SYMPTOMS WORSEN OR NEW SYMPTOMS DEVELOP, OR YOU HAVE CONCERNS ABOUT YOUR CONDITION; OR IF YOUR CONDITION WORSENS WHILE YOU ARE WAITING FOR YOUR FOLLOW UP APPOINTMENT; EITHER CONTACT YOUR PRIMARY CARE DOCTOR, THE PHYSICIAN WHOSE NAME AND NUMBER YOU WERE GIVEN, OR RETURN TO THE ED IMMEDIATELY. Scripts Ondansetron Hcl (ZOFRAN) 4 Mg Tablet 1 TAB PO Q8HRS PRN for NAUSEA, #8 TAB 0 Refills Prov: JACKIE FU MD 08/07/20 JACKIE FU MD Aug 07, 2020 15:28
--- NOTE | 2020-08-07 15:49 | RAD ---
CT HEAD/BRAIN WO Date: 08/07/2020 3:26 PM Clinical Indication: dizzy Comparison: None. Technique: 5 mm axial tomographic images were obtained of the head without contrast. These were view ed on brain and bone windows. One or more of the following dose reduction techniques were utilized: A utomated exposure control (AEC), Adjustment of mA and/or kV according to patient size, Use of iterati ve reconstruction technique such as ASiR, CT scan done according to ALARA and image gently/image buchanan ly Findings: The brain parenchyma is normal in attenuation. No intra- or extra-axial mass or fluid collection. No acute hemorrhage. The ventricles are normal in size, shape, and morphology. The carmichael-white matter jordan ction is normal. The subarachnoid cisterns are patent. Opacification of the left frontal sinus. Partial opacification of the ethmoid air cells. Mild sphenoi d sinus and left maxillary sinus mucosal thickening. The visualized portions of the orbits and globe s are normal. The mastoid air cells are clear. The project manager process development topogram shows no lytic lesion or fracture. Impression: No acute intracranial process. Electronically signed by: Dung Mason MD (08/07/2020 3:46 PM) [facility]
--- NOTE | 2020-08-07 16:05 | EKG ---
[facility] [address] [place] [address] Test Date: 2020-08-07 Test Time: 14:39:28 Pat Name: KAM REY Department: Room: Gender: F Signing Teacher: : 1970 Requested By: JOSIAH MAHONEY Order Number: [id number] Reading MD: Measurements Intervals [place] Rate: 101 P: 48 MD: 126 QRS: 42 QRSD: 82 T: 58 QT: 322 QTc: 418 Interpretive Statements SINUS TACHYCARDIA T ABNORMALITY IN ANTEROSEPTAL LEADS ABNORMAL ECG RI6.02 No previous ECG available for comparison
[2020-08-07] MEDS ORDERED: ONDA4TAB7 PO (16:17)
[2020-08-07 16:25] VITALS: BP 119/76
== END 2020-08-07 16:34 | disposition home or self-care (01) ==
LOC: ER 14:08
DX: R42 Dizziness and giddiness (principal); R11.0 Nausea; G43.909 Migraine, unspecified, not intractable, without status migrainosus; F17.200 Nicotine dependence, unspecified, uncomplicated
CPT/HCPCS: 36415; 70450; 80053; 81001; 83735; 84484; 85025; 87086; 93005; 99285-25

== ENCOUNTER 2020-11-11 19:28 | Emergency (ER) | payer SELFPAY ==
[~2020-11-11] VITALS: Ht 170.2 cm; Wt 86.0 kg
[~2020-11-11 19:28] MED LIST changes: +ONDA4TAB7 PO
[2020-11-11 22:55] VITALS: BP 145/86
--- NOTE | 2020-11-11 23:14 | PHYS DOC ---
Past Medical History Past Medical History: Cancer, Migraines, Other Additional Past Medical Histor: Hx of drug abuse/METH USE/colon ca/ HEMORRHOID,ORAL CA Past Surgical History: Appendectomy, , Tubal ligation Additional Past Surgical Histo: tubal, c section, previous meth use Smoking Status: Current Every Day Smoker Alcohol Use: Rarely Drug Use: None General Adult EDM: Chief Complaint: ABDOMINAL PAIN HPI: HPI: Patient is a 50 year old female who presents with epigastric/right upper quadrant pain. Is been intermittent for the past 2 weeks., But became constant at approximately 4 AM this morning when she woke up. Worse with eating. Radiates through to the back. Denies alcohol use. Associated with nausea and vomiting. No changes in stools. Last bowel movement earlier today. No bloody stools or melena. No dysuria, urgency, frequency. No vaginal bleeding or discharge. She has a history of an appendectomy, denies other abdominal surgical history. She does endorse some associated chills starting today. Review of Systems: Review of Systems: Constitutional: Denies fever. + chills. [] Eyes: Denies change in visual acuity. [] HENT: Denies nasal congestion or sore throat. [] Respiratory: Denies cough or shortness of breath. [] Cardiovascular: Denies chest pain or edema. [] GI: Reports abdominal pain, nausea, vomiting, poor appetite. Denies bloody s tools or diarrhea. [] : Denies dysuria. [] Musculoskeletal: Denies back pain or joint pain. [] Integument: Denies rash. [] Neurologic: Denies headache, focal weakness or sensory changes. [] Endocrine: Denies polyuria or polydipsia. [] Lymphatic: Denies swollen glands. [] Psychiatric: Denies depression or anxiety. [] Heart Score: C/O Chest Pain: No Risk Factors: Risk Factors: DM, Current or recent (<one month) smoker, HTN, HLP, family history of CAD, obesity. Risk Scores: Score 0 - 3: 2.5% MACE over next 6 weeks - Discharge Home Score 4 - 6: 20.3% MACE over next 6 weeks - Admit for Clinical Observation Score 7 - 10: 72.7% MACE over next 6 weeks - Early Invasive Strategies Allergies: Allergies: Allergies Coded Allergies Type Severity Reaction Last Updated Verified No Known Drug Allergies 11/17/13 No Physical Exam: PE: Constitutional: Appears uncomfortable. Wincing in pain. HENT: Normocephalic, atraumatic, Eyes: conjunctiva normal, no discharge. [] Neck: Normal range of motion, no tenderness, supple, no stridor. [] Cardiovascular:Heart rate regular rhythm, no murmur [] Lungs & Thorax: Bilateral breath sounds clear to auscultation [] Abdomen: Soft, nondistended. Focal RUQ and epigastric tenderness to palpation. Negative Roland. Skin: Warm, dry, no erythema, no rash. [] Back: No tenderness, no CVA tenderness. [] Extremities: No tenderness, no cyanosis, no clubbing, ROM intact, no edema. [] Neurologic: Alert and oriented X 3, normal motor function, normal sensory function, no focal deficits noted. [] Psychologic: Affect normal, judgement normal, mood normal. [] Current Patient Data: Vital Signs: Vital Signs Date Time Temp Pulse Resp B/P (MAP) Pulse Ox O2 Delivery O2 Flow Rate FiO2 11/11/20 22:55 97.9 72 18 145/86 (105) 98 Room Air 97.9 EKG: EKG: [] Radiology/Procedures: Radiology/Procedures: [] Impression: [facility] [address] [place], [place] [id number] IMAGING REPORT Signed PATIENT: KAM REY ACCOUNT: [id number] : 1970 LOCATION: ER AGE: 50 SEX: F EXAM STATUS: REG ER ORD. PHYSICIAN: SUZI ALBERTS MD REASON: abdominal pain, RUQ/epigastric;OMNI 300, 75ML PROCEDURE: CT ABD PELV W/ IV CONTRST ONLY EXAM: CT Abdomen and Pelvis with IV contrast CLINICAL HISTORY: abdominal pain, RUQ/epigastric COMPARISON: none TECHNIQUE: Helical CT of the abdomen and pelvis was performed following the administration of intravenous contrast. Axial, coronal and sagittal reformatted images were generated. PQRS compliance statement - One or more of the following individualized dose reduction techniques were utilized for this study: 1. Automated exposure control 2. Adjustment of the mA and/or kV according to patient size 3. Use of iterative reconstruction technique FINDINGS: Lower Chest: Linear and bandlike opacities lower lobes likely scarring/atelectasis. Abdomen and Pelvis: No focal liver lesion. Liver is borderline enlarged measuring 18.3 cm in length. Gallbladder is normal. No biliary ductal dilatation. Spleen is unremarkable. Adrenal glands are normal. Pancreas is unremarkable. Symmetric nephrograms. No focal renal lesion. No hydronephrosis. No hydroureter. Bladder is unremarkable. Moderate colonic stool content is seen. No small or large bowel dilatation. No bowel obstruction. Trace thickening of the gastric wall in the region of the antrum. Small gastrohepatic ligament lymph node is seen measuring 1.2 x 0.9 cm. No abdominal or pelvic ascites. No abdominal or pelvic lymphadenopathy. Bones: No aggressive osseous lesion. Disc disease L4-5 and L5-S1. IMPRESSION: 1. There is thickening of the gastric antrum, possibly from gastritis although underlying mass is not excluded. A small adjacent lymph node is seen, likely reactive although metastatic focus is not excluded. This can be further assessed by endoscopy if clinically indicated. 2. Accounting for postcholecystectomy change, no biliary ductal dilatation. Electronically signed by: Devin Linares MD (11/12/2020 12:31 AM) [facility] DICTATED and SIGNED BY: DEVIN LINARES MD DATE: 11/12/20 [id number] 0 Course & Med Decision Making: Course & Med Decision Making Pertinent Labs and Imaging studies reviewed. (See chart for details) Patient 50-year-old female who presents with intermittent RUQ/epigastric pain for the past 2 weeks it has become constant today. On arrival is afebrile, hemodynamically stable. Has focal RUQ/epigastric tenderness on palpation. DDx includes PUD, pancreatitis, Kari lithiasis, choledocholithiasis, cholecystitis, less likely vascular disease such as AAA. Will check labs including CBC, CMP, lipase, UA, and CT of the abdomen/pelvis. 2314 Labs reassuring. UA with some WBCs and bacteria, but no urinary symptoms to suggest UTI. CT shows some thickening of the gastric antrum, concerning for gastritis, which does fit with clinical picture. Fortunately no history for GI bleeding and hemoglobin is stable. Cannot exclude malignancy. Will have her f/u closely with PCP to discuss need for GI f/u, endoscopy. We will give protonix, viscous lidocaine, and sucralfate. [id number] Trish Disclaimer: Trish Disclaimer: This electronic medical record was generated, in whole or in part, using a voice recognition dictation system. Departure Departure Impression: Primary Impression: Epigastric pain Additional Impression: Gastritis Referrals: NO PCP (PCP) Patient Instructions: Gastritis, Adult Additional Instructions: your work-up showed inflammation in your stomach. This can be due to too much acid, or other more serious problems like cancer. Please take the medications as prescribed. You will be important that you follow-up with your primary care doctor. You will need to potentially have further work-up to make sure that this is not cancer. Scripts Hydrocodone Bit/Acetaminophen (HYDROCODONE-APAP 5-325 ) 1 Tab Tablet 1 TAB PO PRN Q6HRS PRN for PAIN for 3 Days, #10 TAB 0 Refills Prov: SUZI ALBERTS MD 11/12/20 Sucralfate (SUCRALFATE) 1 Gm Tablet 1 TAB PO TID, #90 TAB 11 Refills Prov: SUZI ALBERTS MD 11/12/20 Ondansetron Hcl (ZOFRAN) 4 Mg Tablet 1 TAB PO PRN Q6-8HRS PRN for NAUSEA, #20 TAB Prov: SUZI ALBERTS MD 11/12/20 Omeprazole (OMEPRAZOLE) 40 Mg Capsule. 1 CAP PO DAILY, #30 CAP 3 Refills Prov: SUZI ALBERTS MD 11/12/20 SUZI ALBERTS MD Nov 11, 2020 23:14
[2020-11-11] MEDS ORDERED: MORPHINE SULFATE 4 MG/ML INJ. IVP ONE (23:15)
[2020-11-11] MEDS ORDERED: ONDANSETRON PF 4 MG/2 ML VIAL. IVP ONE (23:15)
[2020-11-11 23:38] LABS: BILIRUBIN,URINE NEGATIVE (NEG); CLARITY,URINE CLEAR; COLOR,URINE YELLOW; NITRITE,URINE NEGATIVE (NEG); PH,URINE 6.5 (<5.0-8.0); PROTEIN,URINE NEGATIVE (NEG-TRACE)
[2020-11-11 23:43] LABS: BASO % 0 % (0-3); EOS # 0.3 x10^3/uL (0.0-0.7); EOS % 3 % (0-3); HEMATOCRIT 41.6 % (36.0-47.0); HEMOGLOBIN 13.9 g/dL (12.0-15.5); LYMPH # 3.2 x10^3/uL (1.0-4.8); LYMPH % 36 % (24-48); MEAN CORPUSCULAR HEMOGLOBIN 29 pg (25-35); MEAN CORPUSCULAR HGB CONC 33 g/dL (31-37); MEAN CORPUSCULAR VOLUME 88 fL (79-100); MONO # 0.7 x10^3/uL (0.0-1.1); MONO % 8 % (0-9); NEUT # 4.7 x10^3/uL (1.8-7.7); NEUT % 53 % (31-73); PLATELET COUNT 267 x10^3/uL (140-400); RED BLOOD COUNT 4.75 x10^6/uL (3.50-5.40); WHITE BLOOD COUNT 8.9 x10^3/uL (4.0-11.0)
[2020-11-11 23:48] LABS: AMORPHOUS SEDIMENT,UR PRESENT /HPF; BACTERIA,URINE FEW /HPF (0-FEW); RBC,URINE 0 /HPF (0-2)
[2020-11-11 23:56] LABS: CALCIUM 8.9 mg/dL (8.5-10.1); CREATININE 0.9 mg/dL (0.6-1.0); GFR 66.8; POTASSIUM 4.1 mmol/L (3.5-5.1)
[2020-11-12 00:02] LABS: ALBUMIN 3.4 g/dL (3.4-5.0); ALBUMIN/GLOBULIN RATIO 1.1 (1.0-1.7); TOTAL BILIRUBIN 0.2 mg/dL (0.2-1.0); TOTAL PROTEIN 6.6 g/dL (6.4-8.2)
[2020-11-12] MEDS ORDERED: IOHEXOL 300 MG/ML 100ML VIAL. IV ONE (00:15)
[2020-11-12] MEDS ORDERED: CONTRAST GIVEN. MC PRN (00:15)
--- NOTE | 2020-11-12 00:34 | RAD ---
EXAM: CT Abdomen and Pelvis with IV contrast CLINICAL HISTORY: abdominal pain, RUQ/epigastric COMPARISON: none TECHNIQUE: Helical CT of the abdomen and pelvis was performed following the administration of intrave nous contrast. Axial, coronal and sagittal reformatted images were generated. PQRS compliance statement - One or more of the following individualized dose reduction techniques wer e utilized for this study: 1. Automated exposure control 2. Adjustment of the mA and/or kV according to patient size 3. Use of iterative reconstruction technique FINDINGS: Lower Chest: Linear and bandlike opacities lower lobes likely scarring/atelectasis. Abdomen and Pelvis: No focal liver lesion. Liver is borderline enlarged measuring 18.3 cm in length. Gallbladder is man l. No biliary ductal dilatation. Spleen is unremarkable. Adrenal glands are normal. Pancreas is unrem arkable. Symmetric nephrograms. No focal renal lesion. No hydronephrosis. No hydroureter. Bladder is unremarka ble. Moderate colonic stool content is seen. No small or large bowel dilatation. No bowel obstruction. Tra ce thickening of the gastric wall in the region of the antrum. Small gastrohepatic ligament lymph nod e is seen measuring 1.2 x 0.9 cm. No abdominal or pelvic ascites. No abdominal or pelvic lymphadenopathy. Bones: No aggressive osseous lesion. Disc disease L4-5 and L5-S1. IMPRESSION: 1. There is thickening of the gastric antrum, possibly from gastritis although underlying mass is no t excluded. A small adjacent lymph node is seen, likely reactive although metastatic focus is not exc luded. This can be further assessed by endoscopy if clinically indicated. 2. Accounting for postcholecystectomy change, no biliary ductal dilatation. Electronically signed by: Devin Vázquez MD (11/12/2020 12:31 AM) [facility]
[2020-11-12] MEDS ORDERED: SUCRALFATE 1 GM TABLET. PO ONE (00:45)
[2020-11-12] MEDS ORDERED: LIDOCAINE 2% VISCOUS 15 ML SOLUTION. SWSW ONE (00:45)
[2020-11-12] MEDS ORDERED: PANTOPRAZOLE 40 MG TABLET.DR. PO ONE (01:00)
[2020-11-12] MEDS ORDERED: ONDA4TAB7 PO (03:00)
[2020-11-12] MEDS ORDERED: HYDR-2761 PO (03:00)
[2020-11-12] MEDS ORDERED: SUCR1TAB PO (03:00)
[2020-11-12] MEDS ORDERED: OMEP40CA7 PO (03:00)
== END 2020-11-12 03:20 | disposition home or self-care (01) ==
LOC: ER 19:28
DX: K29.70 Gastritis, unspecified, without bleeding (principal); G43.909 Migraine, unspecified, not intractable, without status migrainosus; F17.200 Nicotine dependence, unspecified, uncomplicated; Z90.89 Acquired absence of other organs; Z98.51 Tubal ligation status
CPT/HCPCS: 36415; 74177; 80053; 81001; 81025; 83690; 85025; 96374; 96375; 99285; J2270; J2405; Q9967

== ENCOUNTER 2020-11-21 21:27 | Emergency (ER) | payer SELFPAY ==
[~2020-11-21] VITALS: Ht 162.6 cm; Wt 72.2 kg
[~2020-11-21 21:27] MED LIST changes: +HYDR-2761 PO; +OMEP40CA7 PO; +SUCR1TAB PO
--- NOTE | 2020-11-21 21:50 | PHYS DOC ---
Past Medical History Past Medical History: Cancer, Migraines, Other Additional Past Medical Histor: Hx of drug abuse/METH USE/colon ca/ HEMORRHOID,ORAL CA Past Surgical History: Appendectomy, , Tubal ligation, Other Additional Past Surgical Histo: tubal, c section, previous meth use Smoking Status: Current Every Day Smoker Alcohol Use: None Drug Use: None General Adult EDM: Chief Complaint: GI PROBLEM HPI: HPI: Patient is a 50-year-old female that presents today with abdominal pain. Patient states abdominal pain has gotten worse over the last 48 hours. Patient states she was here on November 12 for similar pain was given prescriptions for Nexium, Zofran, Lortab and Carafate. Patient states she was able to fill the Nexium Zofran and Lortab prescription but unable to fill the Carafate due to cost. Patient did not follow-up with her primary care physician this past week and they were putting in a referral to see GI. Patient states pain over the last 48 hours become unbearable she states pain is pretty diffuse, patient does states she had a bowel movement today that was loose in consistency, but she states that is her norm. Patient does feel nauseated and has not vomited. Review of Systems: Review of Systems: Constitutional: Denies fever or chills. [] Eyes: Denies change in visual acuity. [] HENT: Denies nasal congestion or sore throat. [] Respiratory: Denies cough or shortness of breath. [] Cardiovascular: Denies chest pain or edema. [] GI: abdominal pain, nausea or diarrhea, denies vomiting, bloody stools . [] : Denies dysuria. [] Musculoskeletal: Denies back pain or joint pain. [] Integument: Denies rash. [] Neurologic: Denies headache, focal weakness or sensory changes. [] Endocrine: Denies polyuria or polydipsia. [] Lymphatic: Denies swollen glands. [] Psychiatric: Denies depression or anxiety. [] Heart Score: C/O Chest Pain: N/A Risk Factors: Risk Factors: DM, Current or recent (<one month) smoker, HTN, HLP, family history of CAD, obesity. Risk Scores: Score 0 - 3: 2.5% MACE over next 6 weeks - Discharge Home Score 4 - 6: 20.3% MACE over next 6 weeks - Admit for Clinical Observation Score 7 - 10: 72.7% MACE over next 6 weeks - Early Invasive Strategies Current Medications: nexium lortab zofran prn Allergies: Allergies: Allergies Coded Allergies Type Severity Reaction Last Updated Verified No Known Drug Allergies 11/17/13 No Physical Exam: PE: Constitutional: Well developed, well nourished, moderate distress. HENT: Normocephalic, atraumatic, bilateral external ears normal, oropharynx moist, no oral exudates, nose normal. [] Eyes: PERRLA, EOMI, conjunctiva normal, no discharge. [] Neck: Normal range of motion, no tenderness, supple, no stridor. [] Cardiovascular:Heart rate regular rhythm, no murmur [] Lungs & Thorax: Bilateral breath sounds clear to auscultation [] Abdomen: Tenderness noted in all quadrants, but especially in the right upper. abdomen soft, bowel sound hyperactive. Skin: Warm, dry, no erythema, no rash. [] Back: No tenderness, no CVA tenderness. [] Extremities: No tenderness, no cyanosis, no clubbing, ROM intact, no edema. [] Neurologic: Alert and oriented X 3, normal motor function, normal sensory function, no focal deficits noted. [] Psychologic: Affect normal, judgement normal, mood normal. [] Current Patient Data: Labs: Laboratory Tests Test 11/21/20 21:37 11/21/20 21:58 Urine Collection Type Unknown Urine Color Yellow Urine Clarity Clear Urine pH 7.5 Urine Specific [place] 1.015 Urine Protein Negative mg/dL Urine Glucose (UA) Negative mg/dL Urine Ketones (Stick) Negative mg/dL Urine Blood Negative Urine Nitrite Negative Urine Bilirubin Negative Urine Urobilinogen Dipstick 1.0 mg/dL Urine Leukocyte Esterase Moderate Urine RBC Occ /HPF Urine WBC 5-10 /HPF Urine Squamous Epithelial Cells Many /LPF Urine Bacteria Few /HPF Urine Mucus Slight /LPF White Blood Count 9.3 x10^3/uL Red Blood Count 4.80 x10^6/uL Hemoglobin 14.2 g/dL Hematocrit 41.7 % Mean Corpuscular Volume 87 fL Mean Corpuscular Hemoglobin 30 pg Mean Corpuscular Hemoglobin Concent 34 g/dL Red Cell Distribution Width 14.1 % Platelet Count 238 x10^3/uL Neutrophils (%) (Auto) 63 % Lymphocytes (%) (Auto) 26 % Monocytes (%) (Auto) 7 % Eosinophils (%) (Auto) 3 % Basophils (%) (Auto) 1 % Neutrophils # (Auto) 5.8 x10^3/uL Lymphocytes # (Auto) 2.4 x10^3/uL Monocytes # (Auto) 0.7 x10^3/uL Eosinophils # (Auto) 0.3 x10^3/uL Basophils # (Auto) 0.1 x10^3/uL Sodium Level 138 mmol/L Potassium Level 4.1 mmol/L Chloride Level 105 mmol/L Carbon Dioxide Level 29 mmol/L Anion Gap 4 Blood Urea Nitrogen 7 mg/dL Creatinine 1.0 mg/dL Estimated GFR (Cockcroft-Gault) 59.2 BUN/Creatinine Ratio 7 Glucose Level 95 mg/dL Calcium Level 8.5 mg/dL Total Bilirubin 0.2 mg/dL Aspartate Amino Transf (AST/SGOT) 11 U/L Alanine Aminotransferase (ALT/SGPT) 20 U/L Alkaline Phosphatase 67 U/L Total Protein 6.1 g/dL Albumin 3.2 g/dL Albumin/Globulin Ratio 1.1 Lipase 119 U/L Current Medications Medications (Trade) Dose Ordered Sig/Micah Route PRN Reason Start Time Stop Time Status Last Admin Dose Admin Sodium Chloride 1,000 ml @ 1,000 mls/hr 1X ONCE IV 11/21/20 22:00 11/21/20 22:59 11/21/20 22:02 Famotidine (Pepcid Vial) 20 mg 1X ONCE IVP 11/21/20 22:00 11/21/20 22:01 DC 11/21/20 22:14 Ondansetron HCl (Zofran) 4 mg 1X ONCE IVP 11/21/20 22:00 11/21/20 22:01 DC 11/21/20 22:13 Multi-Ingredient Mouthwash/Gargle (Gi Cocktail) 20 ml 1X ONCE SWSW 11/21/20 22:00 11/21/20 22:01 DC Iohexol (Omnipaque 300 Mg/ml) 75 ml 1X ONCE IV 11/21/20 23:00 11/21/20 23:01 Info (CONTRAST GIVEN -- Rx MONITORING) 1 each PRN DAILY PRN MC SEE COMMENTS 11/21/20 22:45 11/23/20 22:44 EKG: EKG: [] Radiology/Procedures: Radiology/Procedures: PROCEDURE: CT ABD PELV W/ IV CONTRST ONLY CT ABDOMEN+PELVIS W History: Reason: abdominal pain, OMNI 300 60 ML IV / Spl. Instructions: / History: Technique: After the administration of intravenous contrast, CT imaging was performed of the abdomen and pelvis. Multiplanar images are reviewed. Exposure: One or more of the following individualized dose reduction techniques were utilized for this examination: 1. Automated exposure control 2. Adjustment of the mA and/or kV according to patient size 3. Use of iterative reconstruction technique. Comparison: November 12, 2020 Findings: Lower chest: Mild scattered linear atelectasis. Abdomen and pelvis: The liver, spleen, adrenal glands, pancreas and gallbladder are unremarkable. No biliary ductal dilatation. Patent portal vein. No renal calculus. No hydronephrosis. Unchanged mild thickening of the gastric antrum. Small adjacent lymph node, unchanged. Appendix not well seen. No evidence of bowel obstruction. No ascites. Atheromatous plaque throughout the nonaneurysmal abdominal aorta and branch vessels. Bones: No pathologic osseous lesions. Impression: 1. Unchanged mild gastric antral wall thickening, may relate to nondistention. Recommend correlation for gastritis and follow-up as indicated. Electronically signed by: Rashard Meade DO (11/21/2020 11:20 PM) [facility][] Course & Med Decision Making: Course & Med Decision Making Pertinent Labs and Imaging studies reviewed. (See chart for details) [2331 patient reexamined and continued to have pain unchanged with current treatments. patient states throat is painful due to GI cocktail. Will consult with Dr Mccormick. [id number] went to speak to patient patient was at sting with eyes closed and had to be tactile stimulated awake, patient informed she will be sent home for follow- up with her primary care next week she is to continue Nexium and Zofran as directed. She was given strict return instructions if she starts vomiting blood, running a fever, or inability to keep liquids down. Patient was instructed to make dietary changes, patient verbalized understanding requesting narcotic pain medications. Patient informed that opioid medications was not indicated for her condition and that she will need to follow-up with her primary care physician for prescription for opioids. Patient verbalized understanding, was upset by this and states she will be go to another hospital for care. Patient states she does have enough Nexium and Zofran to get her through this week until she sees her primary care. Trish Disclaimer: Trish Disclaimer: This electronic medical record was generated, in whole or in part, using a voice recognition dictation system. Departure Departure Impression: Primary Impression: GERD (gastroesophageal reflux disease) Qualified Codes: K21.9 - Gastro-esophageal reflux disease without esophagitis Additional Impression: Abdominal pain Qualified Codes: R10.13 - Epigastric pain Disposition: HOME / SELF CARE / HOMELESS Condition: STABLE Referrals: NO PCP (PCP) MONI RODRIGUEZ MD Patient Instructions: Abdominal Pain, Diet for Gastroesophageal Reflux Disease, Adult Additional Instructions: Continue current medications of Nexium and Zofran For pain use only Tylenol, avoid nonsteroidal anti-inflammatories, caffeine, spicy food, alcohol, smoking and greasy food. Follow-up with clinic in follow-up with GI next week. Return to the emergency department for vomiting blood, fever/chills, and inability to keep liquid down. ANYI ROBLEDO LEAD PAINTER Nov 21, 2020 21:50
[2020-11-21 21:56] LABS: BILIRUBIN,URINE NEGATIVE (NEG); CLARITY,URINE CLEAR; COLOR,URINE YELLOW; NITRITE,URINE NEGATIVE (NEG); PH,URINE 7.5 (<5.0-8.0); PROTEIN,URINE NEGATIVE (NEG-TRACE)
[2020-11-21] MEDS: IV NORMAL SALINE 1000ML BAG 1,000 ML IV ONE (22:02)
[2020-11-21 22:12] LABS: BASO # 0.1 x10^3/uL (0.0-0.2); BASO % 1 % (0-3); EOS # 0.3 x10^3/uL (0.0-0.7); EOS % 3 % (0-3); HEMATOCRIT 41.7 % (36.0-47.0); HEMOGLOBIN 14.2 g/dL (12.0-15.5); LYMPH # 2.4 x10^3/uL (1.0-4.8); LYMPH % 26 % (24-48); MEAN CORPUSCULAR HEMOGLOBIN 30 pg (25-35); MEAN CORPUSCULAR HGB CONC 34 g/dL (31-37); MEAN CORPUSCULAR VOLUME 87 fL (79-100); MONO # 0.7 x10^3/uL (0.0-1.1); MONO % 7 % (0-9); NEUT # 5.8 x10^3/uL (1.8-7.7); NEUT % 63 % (31-73); PLATELET COUNT 238 x10^3/uL (140-400); RED CELL DISTRIBUTION WIDTH 14.1 % (11.5-14.5); WHITE BLOOD COUNT 9.3 x10^3/uL (4.0-11.0)
[2020-11-21] MEDS: ONDANSETRON PF 4 MG/2 ML VIAL. IVP ONE (22:13)
[2020-11-21] MEDS: FAMOTIDINE 20 MG/2 ML VIAL IVP ONE (22:14)
[2020-11-21 22:19] LABS: CALCIUM 8.5 mg/dL (8.5-10.1); GFR 59.2; POTASSIUM 4.1 mmol/L (3.5-5.1)
[2020-11-21 22:22] LABS: BACTERIA,URINE FEW /HPF (0-FEW); RBC,URINE OCC /HPF (0-2)
[2020-11-21 22:25] LABS: ALBUMIN 3.2 g/dL (3.4-5.0); ALBUMIN/GLOBULIN RATIO 1.1 (1.0-1.7); TOTAL BILIRUBIN 0.2 mg/dL (0.2-1.0); TOTAL PROTEIN 6.1 g/dL (6.4-8.2)
[2020-11-21] MEDS ORDERED: CONTRAST GIVEN. MC PRN (22:45)
[2020-11-21] MEDS: IOHEXOL 300 MG/ML 100ML VIAL. IV ONE (22:46)
[2020-11-21] MEDS: LIDO:MAALOX 1:1 20 ML SINGLE DOSE. SWSW ONE (23:14)
--- NOTE | 2020-11-21 23:23 | RAD ---
CT ABDOMEN+PELVIS W History: Reason: abdominal pain, OMNI 300 60 ML IV / Spl. Instructions: / History: Technique: After the administration of intravenous contrast, CT imaging was performed of the abdomen and pelvis. Multiplanar images are reviewed. Exposure: One or more of the following individualized dose reduction techniques were utilized for thi s examination: 1. Automated exposure control 2. Adjustment of the mA and/or kV according to patient size 3. Use of iterative reconstruction technique. Comparison: November 12, 2020 Findings: Lower chest: Mild scattered linear atelectasis. Abdomen and pelvis: The liver, spleen, adrenal glands, pancreas and gallbladder are unremarkable. No biliary ductal dilatation. Patent portal vein. No renal calculus. No hydronephrosis. Unchanged mild thickening of the gastric antrum. Small adjacent lymph node, unchanged. Appendix not well seen. No evidence of bowel obstruction. No ascites. Atheromatous plaque throughout the nonaneurysmal abdominal aorta and branch vessels. Bones: No pathologic osseous lesions. Impression: 1. Unchanged mild gastric antral wall thickening, may relate to nondistention. Recommend correlation for gastritis and follow-up as indicated. Electronically signed by: Rashard Meade DO (11/21/2020 11:20 PM) [facility]
[2020-11-21 23:32] VITALS: BP 131/80
== END 2020-11-22 00:45 | disposition home or self-care (01) ==
LOC: ER 21:27
DX: K21.9 Gastro-esophageal reflux disease without esophagitis (principal); R10.13 Epigastric pain; G43.909 Migraine, unspecified, not intractable, without status migrainosus; F17.200 Nicotine dependence, unspecified, uncomplicated; Z90.89 Acquired absence of other organs; Z98.890 Other specified postprocedural states; Z98.51 Tubal ligation status
CPT/HCPCS: 36415; 74177; 80053; 81001; 83690; 85025; 87086; 96361; 96374; 96375; 99285; J2405; J3490; J7030; Q9967